=== PATIENT | female | born 1980 | race Caucasian/White ===

== ENCOUNTER 2021-04-24 18:49 | Observation (INO) | payer OTHER, SELFPAY ==
[2021-04-24] VITALS (11 sets, daily range): BP systolic 107–123; BP diastolic 60–78; PULSE 84–102; RESP 12–20; TEMP 36.8; O2SAT 95–99
--- NOTE | ~2021-04-24 | XR_ITS ---
EXAMINATION: XR chest 1V portable INDICATION: Drug overdose TECHNIQUE: Portable AP chest at 2336 hours COMPARISON: None available FINDINGS: The lungs are free of acute opacities. There is no pleural effusion or pneumothorax. The ca rdiomediastinal silhouette is normal. The visualized bones and soft tissues are unremarkable. IMPRESSION: 1. No acute cardiopulmonary abnormality. Reviewed, dictated and finalized at location A.
--- NOTE | ~2021-04-24 | XR_ITS ---
EXAMINATION: XR finger 2nd LT min 2V INDICATION: Left second finger pain TECHNIQUE: Four views of the left second finger are obtained COMPARISON: None available FINDINGS: There is soft tissue swelling of the finger. Bone alignment is normal. There is a possible nondisplaced fracture at the palmar aspect of the middle phalanx extending to the proximal interphala ngeal joint. IMPRESSION: 1. Possible nondisplaced fracture at the palmar aspect middle phalanx involving the proximal interpha langeal joint. Correlate for tenderness at this site. Reviewed, dictated and finalized at location A. IMPRESSION: 1. Possible nondisplaced fracture at the palmar aspect middle phalanx involving the proximal interphalangeal joint. Correlate for tenderness at this site.
--- NOTE | 2021-04-24 19:22 | ECG_ITS ---
Measurements Intervals [place] Rate: 84 P: 38 CO: 147 QRS: 54 QRSD: 89 T: 39 QT: 379 QTc: 448 Interpretive Statements SINUS RHYTHM BORDERLINE R WAVE PROGRESSION, ANTERIOR LEADS BASELINE ARTIFACT- I, II, III, AVR, AVL, AVF, V1, V3-V6 BORDERLINE ECG Electronically Signed On 04-24-2021 20:23:37 CDT by Osmani Erickson D.O.
--- NOTE | 2021-04-24 19:41 | ED.OVERDOSE ---
HPI - Overdose General Chief Complaint: Overdose Stated Complaint: took unknown amount of trazadone and drinking Time Seen by Provider: 04/24/21 19:41 Source: patient, family, EMS and RN notes reviewed Mode of arrival: EMS Limitations: no limitations History of Present Illness HPI Narrative: 40 years old white female came to the emergency room with suicidal attempt by taking 50 tablets of trazodone 150 mg each at 6 PM today. Patient reports that she would like to go away, and does not have any specific reason. Everything around her is making her feel down. Patient had some alcohol today, last alcohol intake was 1 year ago. Her sister is telling me that she had a couple relapses 1 month ago. Patient son had history of multiple failed suicidal attempts, her aunt had successful suicidal attempt.. Patient denies any fever, chills, nausea, vomiting. Patient denies any history of suicidal attempt. Or psych hospitalization Related Data Home Medications Medication Instructions Recorded Confirmed clonazepam 04/24/21 norethindrone-ethin estradiol tablet 04/24/21 [Alyacen ()] trazodone 04/24/21 venlafaxine mg PO 04/24/21 ziprasidone HCl 04/24/21 Allergies Allergy/AdvReac Type Severity Reaction Status Date / Time No Known Allergies Allergy Verified 04/24/21 19:59 Review of Systems Review of Systems: CONSTITUTIONAL: Denies fever, chills, or sweats. EYES: Denies visual changes, redness, or discharge. ENT: Denies rhinorrhea, congestion, sore throat, or otalgia. CARDIOVASCULAR: Denies chest pain, palpitations, or edema. RESPIRATORY: Denies cough or dyspnea. GASTROINTESTINAL: Denies abdominal pain, nausea, vomiting, or diarrhea. GENITOURINARY: Denies dysuria or hematuria. SKIN: Denies rash or itching. MUSCULOSKELETAL: Denies back pain, joint pain, or myalgia. NEUROLOGIC: Denies headache, numbness, or weakness. PSYCHIATRIC: Denies anxiety or depression. PMFSH Social History Social History Substance use type: prescription drug Exam Narrative: General appearance: Well-developed, well-nourished Skin: Normal color Head: Normocephalic, nontraumatic Eyes: Clear conjunctiva ENT: Oropharynx normal, ears normal, nose normal Neck: Supple, nontender Chest and respiratory: Airway patent, no respiratory distress, no accessory muscle use Heart: Regular rate/rhythm Abdomen: Soft, nontender, no organomegaly, quiet bowel sounds Vascular: Normal peripheral pulses, normal capillary refill. Musculoskeletal: Normal range of motion, nontender back Neurologic: Alert and oriented ?3, SPLITTER MACHINE is normal as tested, no gross motor deficit Course Course Emergency Course: Stable Consultations Consultation #1: DR SIMMONS Date: 04/24/21 Time: 23:31 Vital Signs Vital signs: Vital Signs Respiratory Rate 16 04/24/21 19:15 Temperature 36.8 C 04/24/21 19:52 Pulse Rate 84 04/24/21 23:26 Respiratory Rate 16 04/24/21 23:26 Blood Pressure 108/67 04/24/21 23:26 Pulse Oximetry 96 04/24/21 23:26 MDM - Overdose MDM Narrative Medical decision making narrative: Suicidal attempt, drug overdose. Differential Diagnosis Differential diagnosis: Likely suicide attempt by multiple drug overdose and drug overdose Lab Data Result diagrams: 04/24/21 19:29 04/24/21 19:29 Labs: Lab Results 04/24/21 04/24/21 04/24/21 Range/Units 19:29 19:29 19:29 WBC 4.2 L (4.5-10.0) K/mm3 RBC 3.92 L (4.2-5.4) M/mm3 Hgb 12.7 (12.0-15.0) g/dL Hct 37.3 (37.0-47.0) % MCV 95.2 (80-100) fl MCH 32.4 (26-34) pg MCHC 34.0 (32-36) g/dl RDW 12.6
[2021-04-24 19:53] LABS: Eosinophils Percent Auto 0.7 % (0-4.4); Hematocrit 37.3 % (37.0-47.0); Hemoglobin 12.7 g/dL (12.0-15.0); Immature Granulocyte Absolute 0.01 K/mm3 (0.00-0.031); Immature Granulocyte Percent A 0.2 % (0-0.5); Lymphocytes Absolute Auto 2.02 K/mm3 (0.9-3.2); Lymphocytes Percent Auto 48.1 % (18.3-44.2); Mean Corpuscular Hemoglobin 32.4 pg (26-34); Mean Corpuscular Volume 95.2 fl (80-100); Mean Platelet Volume 9.5 fl (7.4-10.4); Monocytes Absolute Auto 0.3 K/mm3 (0.1-0.6); Monocytes Percent Auto 7.9 % (2.6-8.5); Neutrophils Absolute Auto 1.8 K/mm3 (1.3-6.7); Neutrophils Percent Auto 42.1 % (45.5-73.1); Platelet Count Result 288 k/mm3 (150-375); Red Blood Count 3.92 M/mm3 (4.2-5.4); Red Cell Distribution Width 12.6 % (11.5-14.5); White Blood Count 4.2 K/mm3 (4.5-10.0)
[2021-04-24 19:59] LABS: Add Urine Microscopic? YES; Appearance Urine Clear (Clear); Bacteria Urine Trace /hpf; Bilirubin Urine Negative (Negative); Blood Urine 1+ (Negative); Color Urine Colorless (Yellow); Glucose Urine UA Negative (Negative); Ketones Urine Negative (Negative); Leukocyte Esterase Ur Negative LEU/UL (Negative); Nitrate Urine Negative (Negative); Protein Urine Negative (Negative); Urobilinogen Urine Negative mg/dL (<2.0)
[2021-04-24 20:00] LABS: Specific Grav Ur 1.002 (1.001-1.035)
[2021-04-24 20:03] LABS: Acetaminophen < 10 ug/mL (10-30); Ethanol 166 mg/dL (<10); Salicylate < 1.0 mg/dL (2-20)
[2021-04-24 20:04] LABS: Alanine Aminotransferase 11 U/L (4-35); Albumin Level 4.5 g/dL (3.5-5.1); Alkaline Phosphatase 77 U/L (38-126); Anion Gap 10 mmol/L (8-16); Aspartate Amino Transferase 26 U/L (14-36); Bilirubin,Total 0.3 mg/dL (0.2-1.3); Blood Urea Nitrogen 7 mg/dL (7-17); Calcium 8.5 mg/dL (8.4-10.2); Carbon Dioxide 25 mmol/L (22-30); Chloride 106 mmol/L (98-107); Estimated CRCL calculation 82 ml/min; Estimated Glomerular Filt Rate > 60; Glucose 88 mg/dL (65-110); Potassium 3.9 mmol/L (3.4-5.0); Sodium 141 mmol/L (137-145)
[2021-04-24 20:15] LABS: Amphetamine Screen Urine Negative (Negative); Barbiturate Screen Urine Negative (Negative); Benzodiazepines Screen Urine Negative (Negative); Cannabinoid Screen Urine Negative (Negative); Cocaine Screen Urine Negative (Negative); Methadone Screen Urine Negative (Negative); Opiate Screen Urine Negative (Negative); Phencyclidine Screen Urine Negative (Negative)
--- NOTE | 2021-04-24 21:22 | PC.NURSE ---
Shelley, poison control RN, called for update. Current VS and labs reviewed.
--- NOTE | 2021-04-24 22:11 | PC.NURSE ---
Moved to room ED #14
--- NOTE | 2021-04-24 23:06 | PC.NURSE ---
Shelley [place] poison control, called for update. VS and update given-aware pt is to be admitted.
--- NOTE | 2021-04-24 23:08 | PC.NURSE ---
covid swab to be collected for behavioral health placement purposes.
[2021-04-24] MEDS: SODIUM CHLORIDE 0.9% IV 1,000 ML 999 ML IV CONT (23:31)
[2021-04-24 23:44] LABS: EDCOVIDSCREEN Negative (Negative)
[2021-04-25 01:00] VITALS: BP 114/84; PULSE 89; RESP 16; TEMP 37.6; O2SAT 99; BMI 26.8
--- NOTE | 2021-04-25 01:22 | ADMGEN ---
This patient, Margot Lockwood, was admitted to Intensive Care Unit-7. Patient/family oriented to hospital policies and general routines including ID bracelet, bed and alarms, visiting hours, pain management, procedures, bathroom and other care routines, personal items, smoking policy, room service/diet, and visiting hours. Information on how to activate the Rapid Response Team has been discussed. Patient/Family are encouraged to report perceived risks to care and to ask questions if they do not understand what they are told or what they should do.
[2021-04-25] MEDS: SODIUM CHLORIDE 0.9% IV 1,000 ML 150 ML IV CONT (01:35)
[2021-04-25 02:00] VITALS: BP 99/68; PULSE 87; PULSE 89; RESP 16
--- NOTE | 2021-04-25 02:48 | PM.IMHP ---
H&P: HPI History of Present Illness Date/Time: 04/25/21 02:48 Chief Complaint: Drug overdose Narrative: This is a 40-year-old female with past medical history significant for alcohol dependence, tobacco dependence. Patient presented to the emergency room after she took 150 mg trazodone 50 tabs. Patient states that she was feeling down was feeling very upset and wanted to hurt herself but then felt regretful and called her sister and her sister brought her to the emergency room. In emergency room there were no abnormal findings. Poison Control was called and plan was to observe the patient. Will be placed in observation for further management assessment and evaluation. Review of Systems Review of Systems: Took 50 tabs of 150 mg trazodone tablets Constitutional: Constitutional: Denies chills, Denies fatigue, Denies fever(s), Denies malaise and Denies weakness Eyes: Eyes: Denies change in vision ENT: Denies dysphagia, Denies nasal congestion, Denies nasal discharge, Denies nasal obstruction and Denies odynophagia Cardiovascular: Cardiovascular: Denies chest pain, Denies irregular heart rhythm, Denies radiating jaw, neck or arm pain, Denies palpitations, Denies dyspnea on exertion and Denies orthopnea Respiratory: Respiratory: Denies dyspnea and Denies wheezing Gastrointestinal: Gastrointestinal: Denies abdominal pain, Denies dyspepsia, Denies diarrhea, Denies nausea and Denies vomiting Genitourinary: Genitourinary: Reports no additional female genitourinary complaints Musculoskeletal: Musculoskeletal: Reports no additional musculoskeletal complaints Integumentary/Breasts: Skin/Breast: Reports system reviewed and no additional complaints, except as docu Neurologic: Reports system reviewed and no additional complaints, except as documented Psychiatric: Psychiatric: Reports depression and Reports suicidal ideation Endocrine: Endocrine: Reports no additional endocrine complaints Hematologic/Lymphatic: Hematologic/Lymphatic: Reports no additional hematologic/lymphatic complaints Allergic/Immunologic: Allergic/Immunologic: Reports no additional allergic/immunologic complaints [facility] Family History Family History (Updated 04/25/21 @ 01:15 by Daniele Almanzar RN) Mother Cerebrovascular accident Hypertension Seizure Social History Social History Years smoked: 20 Smoking status: Current some day smoker Tobacco type: e-cigarettes/vaping Alcohol intake: former Substance use: never Substance use type: prescription drug Spiritual care concerns: No Meds Home Medications and Allergies Home Medications Medication Instructions Recorded Confirmed Type clonazepam 04/24/21 History norethindrone-ethin estradiol tablet 04/24/21 History [Alyacen ()] trazodone 04/24/21 History venlafaxine mg PO 04/24/21 History ziprasidone HCl 04/24/21 History Allergies Allergy/AdvReac Type Severity Reaction Status Date / Time No Known Allergies Allergy Verified 04/24/21 19:59 Vital Signs Vital Signs - 24 hr 04/24/21 19:15 04/24/21 19:52 04/24/21 20:16 Temperature 98.3 F Pulse Rate 88 88 Respiratory Rate 16 16 15 Blood Pressure 123/78 114/72 Pulse Oximetry 99 96 04/24/21 20:31 04/24/21 20:46 04/24/21 21:01 Temperature Pulse Rate 89 99 96 Respiratory Rate 15 12 14 Blood Pressure 110/68 107/60 114/70 Pulse Oximetry 96 95 95 04/24/21 21:16 04/24/21 21:31 04/24/21 22:47 Temperature Pulse Rate 90 92 102 H Respiratory Rate 15 16 15 Blood Pressure 107/71 107/71 107/61 Pulse Oximetry 96 97 96 04/24/21 23:04 04/24/21 23:26 04/25/21 01:00 Temperature 99.7 F H Pulse Rate 92 84 89 Respiratory Rate 20 16 16 Blood Pressure 108/67 108/67 114/84 Pulse Oximetry 97 96 99 Exam Narrative: Patient is laying in gurney Const: General: cooperative, comfortable, no acute distress, well developed, alert and awake N
[2021-04-25 04:00] VITALS: BP 97/58; PULSE 87; RESP 16; O2SAT 99
[2021-04-25] MEDS: LACTATED RINGERS 1,000 ML 999 ML IV CONT ×2 (07:46→09:31)
[2021-04-25 08:00] VITALS: BP 109/76; PULSE 85; RESP 18; TEMP 36.6; O2SAT 96
--- NOTE | 2021-04-25 09:10 | WPDCNINT ---
Assessment and Plan Assessment and plan (1) Drug overdose: Qualifiers: Encounter type: initial encounter Injury intent: intentional self-harm Qualified Code(s): T50.902A - Poisoning by unspecified drugs, medicaments and biological substances, intentional self-harm, initial encounter Code(s): T50.901A - Poisoning by unspecified drugs, medicaments and biological substances, accidental (unintentional), initial encounter Status: Acute Assessment and Plan: Intentional overdose with trazodone 150 mg x 50 pills, patient had a fight with her and was upset and has other stressors in her life which prompted her to ingest the pills in an attempt to harm herself. 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, nausea, hypotension -will give additional IV fluids (2) Suicidal behavior: Code(s): R45.89 - Other symptoms and signs involving emotional state Status: Acute Assessment and Plan: Patient did ingest the medications as mentioned above to harm herself -currently she is not suicidal or homicidal -medically stable, no arrhythmias noted overnight on the tele monitor -will have crisis management and care coordination evaluate the patient (3) Anxiety: Code(s): F41.9 - Anxiety disorder, unspecified Status: Acute Assessment and Plan: Patient has a history of anxiety and takes clonazepam at home (4) Depression: Code(s): F32.9 - Major depressive disorder, single episode, unspecified Status: Acute Assessment and Plan: Patient also history of depression and bipolar and takes venlafaxine Ziprasidone -she uses trazodone as a sleep aid Additional Plan Discussed with patient updated with her condition and plan of care. She was wondering if she could go home today, I did tell her that crisis management and care coordination will evaluate if she could go home a she needs to go to a psych facility, which she understood. Code status: Full code Critical care time spent: 40 minutes This dictation may have been done utilizing a voice recognition system. Attempts have been made to correct errors. However, there may be uncorrected grammatical, spelling, and recognition errors present. Due to a high probability of clinically significant, life threatening deterioration, the patient required my highest level of preparedness to intervene emergently and I personally spent this critical care time directly and personally managing the patient. This critical care time included obtaining a history; examining the patient; pulse oximetry; ordering and review of studies; arranging urgent treatment with development of a management plan; evaluation of patient's response to treatment; frequent reassessment; and discussions with other providers. It was exclusive of separately billable procedures and treating other patients and teaching time. Please see Assessment and Plan section and the rest of the note for further information on patient assessment and treatment Manual Lathe Operator Consult Note Consult date: 04/25/21 Time Seen: 07:08 Reason for consult: Intentional medication overdose, suicidal behavior HPI: Margot Lockwood is a 40 year old female with past medical history of anxiety, depression presented the ED on 04/24/2021 after ingesting trazodone 150 mg x 50 pills. Patient stated that she was feeling down and very upset after she for 20 the wanted to hurt herself and took the pills, after which she was regretful and called her sister brought her to the ER. Patient was given IV fluids, Poison Control was contacted and recommended supportive care and observation. Patient states she uses electronic cigarettes/vaping. Denies any alcohol or illicit drug use. Patient was transferred to ICU for further managemen
[2021-04-25 10:00] VITALS: BP 100/76; PULSE 98; RESP 18; O2SAT 96
--- NOTE | 2021-04-25 10:25 | PC.NURSE ---
Spoke with Eddie from poison control, updated patient on status and vital signs. He states that trazadone has a very short peak of about 1-2 hours and at this time no further complications should be expected and she is medically clear from their standpoint.
[2021-04-25 12:15] LABS: Ethanol < 10 mg/dL (<10)
[2021-04-25 16:00] VITALS: BP 118/79; PULSE 78; RESP 16; TEMP 36.9; O2SAT 97
[2021-04-25 20:42] LABS: Pregnancy On Board Control Positive; Urine Pregnancy Test Negative
--- NOTE | 2021-04-25 21:30 | PC.NURSE ---
Patient noted to have bruising and swelling to left second digit. Complains of pain to the area. XR obtained shows possible non-displaced fracture. Dr. Hernandez notified. Order for splint obtained.
--- NOTE | 2021-04-25 23:14 | PC.NURSE ---
Poison Control provided per poison control. Patient case remains closed.
[2021-04-26] VITALS: BP 114/75; PULSE 68; RESP 14; TEMP 37.1; O2SAT 96
--- NOTE | 2021-04-26 01:01 | PC.NURSE ---
Report given to Keyshawn accepting RN at [facility].
--- NOTE | 2021-04-26 06:21 | PM.TDS ---
Transfer Discharge Sum: Prov Provider Date of admission: 04/24/21 23:20 Primary care physician: CMM INSPECTOR PHYSICIAN Admitting clinician: Tammi Hernandez MD Consults: 04/24/21 23:23 Consult to Physician Routine Comment: Consulting Provider: Briseyda Hall Reason for consultation: Suicidal drug overdose Has provider been notified: Yes Attending physician on discharge: Tammi Hernandez V. Discharging clinician: Tammi Hernandez V. Anticipated date of transfer: 04/26/21 Receiving physician/facility: [facility] DS: Admitting Diagnosis Discharge Date 04/26/21 Admitting Diagnosis Drug overdose DS: Discharge Diagnosis Discharge Diagnosis (1) Drug overdose: Qualifiers: Encounter type: initial encounter Injury intent: intentional self-harm Qualified Code(s): T50.902A - Poisoning by unspecified drugs, medicaments and biological substances, intentional self-harm, initial encounter Code(s): T50.901A - Poisoning by unspecified drugs, medicaments and biological substances, accidental (unintentional), initial encounter Status: Acute Assessment and Plan: Intentional overdose with trazodone 150 mg x 50 pills, patient had a fight with her and was upset and has other stressors in her life which prompted her to ingest the pills in an attempt to harm herself. 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, nausea, hypotension -will give additional IV fluids (2) Suicidal behavior: Code(s): R45.89 - Other symptoms and signs involving emotional state Status: Acute Assessment and Plan: Patient did ingest the medications as mentioned above to harm herself -currently she is not suicidal or homicidal -medically stable, no arrhythmias noted overnight on the tele monitor -will have crisis management and care coordination evaluate the patient (3) Anxiety: Code(s): F41.9 - Anxiety disorder, unspecified Status: Acute Assessment and Plan: Patient has a history of anxiety and takes clonazepam at home (4) Depression: Code(s): F32.9 - Major depressive disorder, single episode, unspecified Status: Acute Assessment and Plan: Patient also history of depression and bipolar and takes venlafaxine Ziprasidone -she uses trazodone as a sleep aid Transfer Discharge Sum: Med Medications Active and Home Medications: Home Medications norethindrone-ethin estradiol [Alyacen (28)] tablet 04/24/21 [History] trazodone 150 mg PO HS 04/24/21 [History Confirmed 04/25/21] venlafaxine 150 mg PO DAILY 04/24/21 [History Confirmed 04/25/21] ziprasidone HCl 120 mg PO DAILY 04/24/21 [History Confirmed 04/25/21] clonazepam 0.5 mg PO TID 04/25/21 [History Confirmed 04/25/21] Transfer Discharge Sum: Hosp Hospital Course Hospital course: Chief Complaint: Drug overdose Narrative: This is a 40-year-old female with past medical history significant for alcohol dependence, tobacco dependence. Patient presented to the emergency room after she took 150 mg trazodone 50 tabs. Patient states that she was feeling down was feeling very upset and wanted to hurt herself but then felt regretful and called her sister and her sister brought her to the emergency room. In emergency room there were no abnormal findings. Poison Control was called and plan was to observe the patient. Will be placed in observation for further management assessment and evaluation. Patient was admitted to intensive care unit for 1-1 and observation and suicide precautions she was discharged in the morning to [facility] psychiatric inpatient facility in [facility]. No events overnight Time Spent with Patient Time attestation: Total time spent providing and/or coordinating transfer services:
== END 2021-04-26 06:55 ==
LOC: ANHED 21:09 → ANHICU 23:29
PROVIDERS: Internal Medicine; Nurse Practitioner; Admitting Provider Internal Medicine; Emergency Provider Emergency Medicine; Visit Provider Internal Medicine
DX: T43.212A Poisoning by selective serotonin and norepinephrine reuptake inhibitors, intentional self-harm, initial encounter (principal); F17.290 Nicotine dependence, other tobacco product, uncomplicated; F41.8 Other specified anxiety disorders; M79.645 Pain in left finger(s); Z20.822 Contact with and (suspected) exposure to COVID-19
CPT/HCPCS: 36415; 71045; 73140; 80053; 80307; 81001; 81025; 84443; 85025; 87426; 93005; 96360; 96361; 96365; 99285; C9803; G0378; G0379; J0131; J7030; J7120

== ENCOUNTER 2023-12-18 09:43 | Emergency (ER) | payer OTHER, SELFPAY ==
--- NOTE | ~2023-12-18 | XR_ITS ---
EXAMINATION: XR foot LT min 3V DATE: 12/18/2023 10:24 INDICATION: Left foot injury. TECHNIQUE: 4 views of left foot were obtained. COMPARISON: None. FINDINGS: Bone alignment is normal. There is an oblique fracture of distal fibula. The distal fractur e fragment demonstrates 2 mm posterior lateral displacement. There is mild osteoarthritis of first me tatarsophalangeal joint and first interphalangeal joint. There is an enthesophyte at plantar aspect o f calcaneal tuberosity. IMPRESSION: 1. Oblique fracture of distal fibula. Reviewed, dictated and finalized at location A.
--- NOTE | ~2023-12-18 | XR_ITS ---
EXAMINATION: XR ankle LT min 3V DATE: 12/18/2023 10:24 INDICATION: Left ankle injury. TECHNIQUE: 4 views of left ankle were obtained. COMPARISON: None. FINDINGS: There is an oblique fracture of distal fibula with medial aspect of the fracture line at th e level of the tibial plafond. The distal fracture fragment demonstrates 2 mm posterior lateral displ acement. Joint spaces are normal. There is ankle soft tissue swelling. IMPRESSION: 1. Oblique fracture of distal fibula. Reviewed, dictated and finalized at location A.
[2023-12-18 09:52] VITALS: BP 131/94; PULSE 88; RESP 20; TEMP 37; O2SAT 100
--- NOTE | 2023-12-18 10:18 | ED.LOWEXIN ---
HPI - Extremity Injury (Lower) General Chief Complaint: Extremity Injury, Lower Stated Complaint: left ankle injury Time Seen by Provider: 12/18/23 10:05 Source: patient, RN notes reviewed and old records reviewed Mode of arrival: ambulatory Limitations: no limitations History of Present Illness HPI Narrative: 43 year old female who presents to [facility] care with complaints of injury to her left foot and ankle which occurred 5 days ago while hiking on vacation when she slipped on a rock and fell. Patient reports she has iced, elevated and also has been taking Tylenol and Ibuprofen for the pain and swelling. Patient reports that she has been wearing a lace up ankle foot splint and has been walking on her foot. Patient has bruising and swelling of left foot and ankle with most pain to lateral aspect of ankle. Patient has palpable pedal pulse with no complaints of tingling or numbness to her left foot. MD complaint: ankle injury and foot injury (left) Onset (ago): day(s) (5 days) Injury: Left: ankle and foot Place: street/outdoors Severity scale (1-10): 7 Exacerbating factors: weight bearing, movement and palpation Treatments prior to arrival: cold therapy, NSAIDS and other (laced up ankle splint) Related Data Home Medications Medication Instructions Recorded Confirmed trazodone 150 mg tablet 150 mg PO HS 04/24/21 12/18/23 venlafaxine 150 mg 150 mg PO DAILY 04/24/21 12/18/23 capsule,extended release 24 hr esterified 1 tablet PO DAILY 12/18/23 12/18/23 estrogens-methyltestosterone 0.625 mg-1.25 mg tablet ziprasidone HCl 80 mg capsule 80 mg PO HS 12/18/23 12/18/23 Allergies Allergy/AdvReac Type Severity Reaction Status Date / Time No Known Allergies Allergy Verified 12/18/23 11:50 Review of Systems Review of Systems: CONSTITUTIONAL: Denies fever, chills, or sweats. EYES: Denies visual changes, redness, or discharge. ENT: Denies rhinorrhea, congestion, sore throat, or otalgia. CARDIOVASCULAR: Denies chest pain, palpitations, or edema. RESPIRATORY: Denies cough or dyspnea. GASTROINTESTINAL: Denies abdominal pain, nausea, vomiting, or diarrhea. GENITOURINARY: Denies dysuria or hematuria. SKIN: Denies rash or itching. MUSCULOSKELETAL: Denies back pain,pain to left lateral ankle and left foot with bruising, or myalgia. NEUROLOGIC: Denies headache, numbness, or weakness. PSYCHIATRIC: positive for history of anxiety or depression. All systems reviewed & are unremarkable except as noted in HPI and below PMFSH Past Medical History Medical History Anxiety Depression Suicide attempt by multiple drug overdose Family History Family History Mother Cerebrovascular accident Hypertension Seizure Social History Social History (Updated 12/18/23 @ 13:02 by Ambar Dorantes MA) Years smoked: 20 Smoking status: Former smoker Tobacco type: cigarettes and e-cigarettes/vaping Additional smoking assessment comments: Quit tobacco and vaping 1.5 years ago Alcohol intake: former Substance use: never Do You Feel Safe in your Home?: Yes Lack of Transportation: No Lack of Food: Never True Current Housing: I Have Housing Concerned About Future Housing: No Difficulty Paying Gas/Electric Bills: No Difficulty Paying for Meds: No Currently Unemployed: No Education: Trade/Vocational Certificate Difficulty w/ Childcare or Family Care: No Spiritual care concerns: No Comments At time of signature, agree with nursing past medical, surgical, social and family history. There is no relevant family history pertinent to the presenting complaint Exam Narrative: GENERAL: Well-appearing, well-nourished, and in no acute distress. HEAD: Normocephalic, atraumatic. EYES: PERRLA and EOMI. ENT: Nares clear, no rhinorrhea or epistaxis. Mucous membranes moist. NECK: Supple.no lymphadenopathy CHEST: [place]
== END 2023-12-18 11:12 | disposition home or self-care (01) ==
PROVIDERS: Emergency Provider Registered Nurse; PCP Family Medicine Sports Medicine
DX: S82.832A Other fracture of upper and lower end of left fibula, initial encounter for closed fracture (principal); W18.09XA Striking against other object with subsequent fall, initial encounter; F41.9 Anxiety disorder, unspecified; F32.A Depression, unspecified; F17.290 Nicotine dependence, other tobacco product, uncomplicated
CPT/HCPCS: 29515; 73610; 73630; 99214; G0463

== ENCOUNTER 2023-12-25 00:55 | Day surgery (SDC) | payer OTHER, SELFPAY ==
[2023-12-19 13:32] VITALS: BMI 25.1
--- NOTE | 2023-12-19 13:42 | PC.NURSE ---
Report to the Outpatient Waiting Room, entrance under the green pavilion located off [facility], at time _1pm_ on date _[id number]_. Planned Procedure Time: _3pm_. Time changes happen often and if your time is changed the preop area will call you the afternoon before. - You and your visitor will be asked to self-screen and do not enter if you have any COVID symptoms. - A mask is optional within the hospital at this time. Patients may have clear liquids (water, carbonated beverages, clear teas, apple juice) until 3 hours prior to surgery with a maximum of 20 ounces. - No food from midnight until time of surgery Take the following medications with a SIP of water the morning of surgery: _None DO NOT STOP ANY OF YOUR OTHER PRESCRIPTION MEDICATIONS PRIOR TO SURGERY ?EXCEPT THE FOLLOWING Medications to discontinue per physician ____All vitamins and supplements Date to take last lyaq___[id number] Aldz taking Semaglutide now until after surgery. (last dose was 12-16-2023) Please no make-up, nail lithuanian, hairspray, perfume, deodorant, or body powder the day of surgery. No jewelry (including any body piercings) or valuables the day of surgery, leave them at home. Please take a shower or bath the night before, or the morning of, surgery with an antibacterial soap. Wear comfortable, loose fitting clothing. - Jewelry must be removed prior to entering the operating room. Rings and piercings that are not removed may be cut off. - The hospital will not accept responsibility for valuables. - Please leave all valuables, including medications, at home the day of surgery. If you are going home after surgery, a licensed jeep driver must drive you home. - NO public transportation without another adult if you receive anesthesia. - We recommend that an adult stay with you for 24 hours following discharge. - We also recommend that you do not drive, make important decision, drink alcoholic beverages, or take any drugs that were not prescribed by your health care provider for at least 24 hours after your discharge time. Follow any additional instructions given to you from your surgeon. If you or anyone in your household have experienced Covid symptoms in the past week, please notify your surgeon or the nurse liaison at the phone number below for possible testing. Telephone instructions given to __Autumn___and asked if any additional questions and then verbalized understanding. Patient advised to call surgeon office or pre surgery nurse liaison [phone] if any additional questions.
[2023-12-25] VITALS (10 sets, daily range): BP systolic 113–128; BP diastolic 80–89; PULSE 90–98; RESP 11–20; TEMP 36.3–37.1; O2SAT 96–100
--- NOTE | ~2023-12-25 | XR_ITS ---
EXAMINATION: XR surgery orthopedic DATE: 12/25/2023 14:07 INDICATION: Distal left fibula fracture. TECHNIQUE: 8 intraoperative fluoroscopic views of left ankle were obtained. I was not present. Fluoro scopy exposure time was 36 seconds. COMPARISON: Left ankle radiographs 12/18/2023 FINDINGS: There is an oblique fracture of distal fibula in near-anatomic alignment status post open r eduction internal fixation with plate and screws. IMPRESSION: 1. Oblique fracture of distal fibula status post open reduction internal fixation. Reviewed, dictated and finalized at location A. IMPRESSION: 1. Oblique fracture of distal fibula status post open reduction internal fixati on.
--- NOTE | 2023-12-25 07:09 | WPDHPUPDATE1 ---
History and Physical Update Update Date/Time: 12/25/23 07:09 History and Physical has been reviewed, including an updated exam of the patient. There are NO changes in the patient's condition. Risks, benefits, and alternatives have been discussed and questions answered. Patient agrees to proceed with procedure.
--- NOTE | 2023-12-25 11:59 | WPDANESEPPF ---
Anes - Initial Pre Proc Eval Procedure: Operation Date: 12/25/23 14:15 Proposed Procedures p Open Reduction Internal Fixation Left Distal Fibula - Bossman Fuchs MD Date/Time: 12/25/23 11:59 Surgeon: Bossman Fcuhs MD Pre Op Diagnosis: left distal fibula fracture Patient Data Age: 43 Gender: F Height: 1.73 m Weight: 75 kg Allergies Allergy/AdvReac Type Severity Reaction Status Date / Time No Known Allergies Allergy Verified 12/19/23 13:27 Home Medications Medication Instructions Recorded Confirmed Type trazodone 150 mg tablet 150 mg PO HS 04/24/21 12/19/23 History venlafaxine 150 mg 150 mg PO DAILY 04/24/21 12/19/23 History capsule,extended release 24 hr esterified 1 tablet PO DAILY 12/18/23 12/19/23 History estrogens-methyltestosterone 0.625 mg-1.25 mg tablet ziprasidone HCl 80 mg capsule 80 mg PO HS 12/18/23 12/19/23 History cholecalciferol (vitamin D3) 125 250 mcg PO DAILY 12/19/23 12/19/23 History mcg (5,000 unit) tablet (Vitamin D3) glucosamine sulf dipot 2 cap PO DAILY 12/19/23 12/19/23 History chlr,msm,chond 550 mg-C 30 mg-mj 1 mg capsule (Glucosamine Chondroitin) magnesium oxide 800 mg PO DAILY 12/19/23 12/19/23 History otfbqlaj-yty-bndb-FA-Ca carb-vit K 1 tablet PO DAILY 12/19/23 12/19/23 History 18 mg iron-400 mcg-500 mg tablet semaglutide 2 mg/dose (8 mg/3 mL) 2 mg subcut WEEKLY 12/19/23 12/19/23 History subcutaneous pen injector (Ozempic) turmeric 400 mg capsule 400 mg PO DAILY 12/19/23 12/19/23 History vit A 7,160 unit-vit C 113 mg-vit 1 tablet PO DAILY 12/19/23 12/19/23 History E 100 chln-ghfg-gdiabm tablet Patient hx anesthesia problems: none Family hx anesthesia problems: none Results Review: All pre-operative results and documents have been reviewed as part of the pre-operative evaluation. [facility] Past Medical History Medical History Anxiety Depression Suicide attempt by multiple drug overdose Family History Family History Mother Cerebrovascular accident Hypertension Seizure Social History Social History Smoking packs per day: 1 Smoking cigarettes per day: 20.0 Years smoked: 10 Smoking pack-years: 10.00 Smoking status: Former smoker Tobacco type: cigarettes and e-cigarettes/vaping Smoking end date: 12/18/21 Additional smoking assessment comments: Quit tobacco and vaping 1.5 years ago Alcohol intake: former Substance use: never Do You Feel Safe in your Home?: Yes Lack of Transportation: No Lack of Food: Never True Current Housing: I Have Housing Concerned About Future Housing: No Difficulty Paying Gas/Electric Bills: No Difficulty Paying for Meds: No Currently Unemployed: No Education: Trade/Vocational Certificate Difficulty w/ Childcare or Family Care: No Living arrangements: with family Spiritual care concerns: No Anes - Eval Final PreProcedure Day of Procedure 12/25/23 11:59 Patient weight: normal Heart: regular rate and rhythm Lungs: clear to auscultation Airway: Mallampati scale class II Neurological: alert and oriented Last oral intake: >/= 8 hours ASA classification: II Emergent: no Anesthetic plan: proceed Anesthesia type and monitoring: general LMA and standard monitoring Results Review: All pre-operative results and documents have been reviewed as part of the pre-operative evaluation. Informed Consent: The patient's anesthetic plan and its attendant risks and benefits were discussed with the patient/family/POA. Questions were solicited and answers provided to the satisfaction of the patient/family/POA.
[2023-12-25] MEDS: ACETAMINOPHEN 500 MG TABLET 1000 MG PO (12:30)
[2023-12-25] MEDS: LACTATED RINGERS 1,000 ML 30 ML IV CONT ×2 (12:40→14:29)
[2023-12-25] MEDS: KETOROLAC 15 MG/ML VIAL (*BKC) IV PUSH (12:49)
[2023-12-25] MEDS: ceFAZolin 2 GM/D5W 50 ML 2 GM/50 ML BAG IVPB (13:02)
[2023-12-25] MEDS: BUPIVACAINE/EPINEPHRINE 0.5% 50 ML VIAL 30 ML INFILTRATE (13:31)
--- NOTE | 2023-12-25 14:43 | P.OP_ITS ---
Procedure Note - Detailed Date of Procedure 12/25/23 Pre-op Diagnosis Displaced left distal fibula fracture Post-op Diagnosis Same Procedure Performed ORIF left distal fibula fracture. Surgeon Bossman Fuchs MD Health Science Writer Marcy Toney RN-FA Anesthesia General Findings Displaced fracture with mild shortening. Anatomic reduction obtained. Description of Procedure A general anesthetic was administered. The limb was prepped and draped in the usual sterile fashion with a well-padded tourniquet high on the thigh. A bump was placed under the hip. The limb was exsanguinated and the tourniquet inflated to 300 millimeters of mercury during the procedure. A longitudinal incision was created at the distal fibula. Careful dissection was carried down to bone. Perineal nerve branches were protected. The fracture was carefully exposed. Callus and debris was irrigated from the wound. The fracture was brought out to length. Reduction was accomplished with the reduction forceps. An anterior to posterior lag screws placed with excellent purchase. The anatomic plate fit very well. Fixation was performed with a combination of cortical and cancellous screws. Distal screws were locking and the proximal screws were nonlocking cortical screws. Fluoroscopy was used throughout the procedure to confirm anatomic reduction and appropriate placement of the implants. The tourniquet was released. Meticulous hemostasis was obtained. Wound was closed in layers with 2-0 Vicryl suture 3-0 Monocryl suture and mary. A sterile dressing with well padded splint was applied. The patient was extubated and brought to the recovery room in stable condition. There were no complications. Implants Arthrex distal fibula anatomic plate. Estimated Blood Loss 20 Drains No Packing No Pathology None sent Complications No immediate complications Condition Stable Disposition PACU [facility] Billing Surgery - Charge Forward: Surgery Billing
[2023-12-25] MEDS: fentaNYL CITRATE INJ (*CRX) 100 MCG/2 ML VIAL 25 MCG IV PUSH ×8 (14:46→16:57)
[2023-12-25] MEDS: oxyCODONE HCL (*CRX) 5 MG TAB IR PO (15:18)
[2023-12-25] MEDS: HYDROmorphone HCL INJ (*CRX) 1 MG/ML SYR 0.5 MG IV PUSH ×4 (16:00→16:45)
[2023-12-25] MEDS: ONDANSETRON INJ 4 MG/2 ML VIAL IV PUSH (16:24)
== END 2023-12-25 17:20 | disposition home or self-care (01) ==
PROVIDERS: PCP Family Medicine Sports Medicine; Visit Provider Orthopaedic Surgery
PROC: (CPT 27792; principal; 2023-12-25 14:15)
DX: S82.432A Displaced oblique fracture of shaft of left fibula, initial encounter for closed fracture (principal); F41.9 Anxiety disorder, unspecified; F32.A Depression, unspecified; Z79.85 Long-term (current) use of injectable non-insulin antidiabetic drugs; Z87.891 Personal history of nicotine dependence; Z82.49 Family history of ischemic heart disease and other diseases of the circulatory system; X50.0XXA Overexertion from strenuous movement or load, initial encounter
CPT/HCPCS: 27792; 99199; A9270; C1713; J0690; J1100; J1170; J1885; J2250; J2405; J2704; J3010; J7120

== ENCOUNTER 2024-02-06 11:08 | Outpatient (CLI) | payer OTHER, SELFPAY ==
--- NOTE | ~2024-02-06 | XR_ITS ---
Left ankle Technique: AP, oblique, and lateral views were obtained. Clinical History: Orthopedic aftercare COMPARISON: 12/18/2023 Findings: Patient is status post interval ORIF of the oblique distal fibular fracture, with satisfact ory osseous and orthopedic hardware alignment. No new fracture seen. Ankle mortise and other visualiz ed joint spaces are preserved. Soft tissues are otherwise unremarkable. Impression: Status post ORIF of distal fibular fracture. Reviewed, dictated and finalized at location M. Impression: Status post ORIF of distal fibular fracture.
== END 2024-02-06 11:09 | disposition home or self-care (01) ==
PROVIDERS: PCP Family Medicine Sports Medicine; Visit Provider Orthopaedic Surgery
DX: Z47.89 Encounter for other orthopedic aftercare (principal)
CPT/HCPCS: 73610